=== PATIENT | male | born 1980 | race Caucasian/White ===

== ENCOUNTER 2021-04-19 12:38 | Emergency (ER) | payer SELFPAY ==
[2021-04-19 12:49] VITALS: BP 146/80; PULSE 87; RESP 16; TEMP 36.8; O2SAT 100
--- NOTE | 2021-04-19 13:00 | US_ITS ---
WS: [id number] SCROTAL ULTRASOUND EXAMINATION CLINICAL INFORMATION: injury/pain/swelling COMPARISON: None. FINDINGS: TESTES Normal in size and echotexture, without focal lesion. Color Doppler: Normal color Doppler flow pattern. Right testes size: 4.3 cm x 3.1 cm x 2.9 cm. Left testes size: 4.4 cm x 2.8 cm x 1.9 cm. EPIDIDYMIDES Enlarged edematous right epididymis with increased vascularity. Right epididymis size: 1.3 cm x 1.6 cm x 2.1 cm. Left epididymis size: 0.9 cm x 1.1 cm x 0.7 cm. HYDROCELE Large right hydrocele with a few septations VARICOCELE None. OTHER FINDINGS Small left epididymal cyst. Reactive lymph nodes in both inguinal regions. US/US scrotum [id number] IMPRESSION: 1. Findings compatible with right epididymitis. No definite evidence of orchit is. 2. Large right hydrocele with a few septations.
--- NOTE | 2021-04-19 13:35 | ED_ITS ---
Documented by User: DUSTY Milan 04/19/21 16:07 HPI - Male Genitourinary General: Chief complaint: General Medical Stated complaint: Swollen Testicle Time Seen by Provider: 04/19/21 12:59 Source: patient Mode of arrival: ambulatory Limitations: no limitations History of Present Illness: HPI Narrative: Patient is a 41-year-old male who presents to ED today with a complaint of severe right-sided scrotal/testicular pain and swelling. Patient states approximately a week ago he accidentally sat on his right testicle and immediately felt pain. He states since that time pain and swelling has continued to increase. He is not complaining of penile discharge, no genital lesions, no dysuria. Patient is urinating normally. MD Complaint: testicle pain and testicle swelling Onset (ago): day(s) Duration: constant Location: right testicle Severity: severe Exacerbating factors: other (ambulation) Associated symptoms: Reports no associated symptoms; Deny dysuria, hematuria or vomiting Review of Systems Const: Denies: fever(s), chills, body aches, fatigue or malaise GI: Denies: abdominal pain, vomiting or diarrhea : Reports: testicular pain and scrotal swelling; Denies: flank pain, difficulty urinating, dysuria, urinary frequency, urinary urgency, urinary hesitancy, hematuria, genital lesions or penile discharge Musc: Denies: back pain Skin/Breast: Denies: rash Physical Exam Const: COMMON NORMALS: no acute distress, patient oriented x3, no limitations and alert GENERAL APPEARANCE: cooperative GI: COMMON NORMALS: Normal to inspection, nondistended, normoactive bowel sounds present, Soft to palpation, non-tender, No hepatosplenomegaly present and no masses INSPECTION: Yes normal to inspection AUSCULTATION: Yes normoactive bowel sounds PALPATION: Yes Soft to palpation and Yes No hep atosplenomegaly present : PENIS: normal penis MEATUS: meatus normal SCROTUM: Yes testes descended bilaterally and Yes scrotal swelling Scrotal swelling laterality: right Scrotal swelling consistent with: hydrocele TESTES: Yes epididymal tenderness (R) Neuro: COMMON NORMALS: patient oriented x3 SENSORIUM/ORIENTATION: Yes alert Course Vital Signs: Vital signs: Vital Signs Temperature 98.3 F 04/19/21 12:49 Pulse Rate 87 04/19/21 12:49 Respiratory Rate 14 04/19/21 16:45 Blood Pressure 146/80 04/19/21 12:49 Pulse Oximetry 100 04/19/21 12:49 MDM - Male MDM Narrative: Medical decision making narrative: Patient story is that he said on his right testicle and since then has had pain and swelling. On exam patient does have a significant sized right hydrocele. There is tenderness to his epididymis. His ultrasound shows a large right hydrocele with a few septations and right-sided epididymitis. Patient's vital signs are stable. His urine with 2+ leuks, too numerous to count WBCs and bacteria. Patient denies new sexual partners, penile discharge, or dysuria. He will be treated with 500mg IM Rocephin and placed on Doxycycline and pain meds and we will get him follow up with Dr. Junior. Gonorrhea/chlamydia ran off of patient's urine and pending. Lab Data: Labs: Lab Results 04/19/21 14:47 Urine Color Yellow (Yellow) Urine Appearance Hazy A (CLEAR) Urine pH 7 (5-7) Ur Specific Gravit y 1.005 (1.005-1.030) Urine Protein Neg (Negative) Urine Glucose (UA) Norm (Normal) Urine Ketones 1+ H (Negative) Urine Blood 2+ H (Negative) Urine Nitrate Negative (Negative) Urine Bilirubin Neg (Negative) Urine Urobilinogen Norm mg/dL mg/dL (Negative) Ur Leukocyte Nayely ase 2+ H (Negative) Urine RBC 0-4 /hpf H /hpf (0-2) Urine WBC Too numerous to c nt /hpf H /hpf (0-5) Ur Squamous Epith Cells 0-4 /hpf H /hpf (0-5) Amorphous Sediment Not Reportable Urine Bacteria 1+ /hpf H /hpf (NONE) Urine Mucus Trace /hpf /hpf Discharge Plan Discharge Patient Disposition: Home Clinical Impression: Epididymitis, right, Right hydrocele Condition: Stable Prescriptions: New hydrocodone-acetaminophen 5-325 mg tablet 1 tab PO Q6H PRN (Reason: pain) Qty: 15 RF: 0 doxycycline monohydrate 100 mg capsule 100 mg PO Q12H 10 Days Qty: 20 RF: 0 Discharge Orders: Discharge ED (Routine); Ordered 04/19/21 Ordered By: Tammy Beltran Referrals: Lucas Junior MD [Physician] - Patient Instructions: Epididymitis (ED), Hydrocele (ED), Opioid Safety Activity Restrictions/Additional Instructions: As we discussed you need to fill your antibiotics and start them immediately and finish the entire course even if you begin feeling better. You need to wear supportive underwear and ice and elevate your scrotum to help with discomfort. Do not apply ice directly to your skin. Case management should contact you shortly to set you up with urology/Dr. Junior for further evaluation. You need to return to the emergency department for worsening or uncontrollable pain, worsening scrotal swelling, fevers, or any other concerns you may have. I hope you begin to feel better soon. Coding Level of Care Code ED Supervisor Parking Lot for Chg Fwd Exam Expanded Problem Focused Documented by User: Devin Smith DO 04/19/21 17:24 HPI - Male Genitourinary General: Chief complaint: General Medical Stated complaint: Swollen Testicle Time Seen by Provider: 04/19/21 12:59 Course Vital Signs: Vital signs: Vital Signs Temperature 98.3 F 04/19/21 12:49 Pulse Rate 87 04/19/21 12:49 Respiratory Rate 14 04/19/21 16:45 Blood Pressure 146/80 04/19/21 12:49 Pulse Oximetry 100 04/19/21 12:49 MDM - Male MDM Narrative: Medical decision making narrative: Chart reviewed with DUSTY Milan agree with assessment and plan. Lab Data: Labs: Lab Results 04/19/21 14:47 Urine Color Yellow (Yellow) Urine Appearance Hazy A (CLEAR) Urine pH 7 (5-7) Ur Specific Gravit y 1.005 (1.005-1.030) Urine Protein Neg (Negative) Urine Glucose (UA) Norm (Normal) Urine Ketones 1+ H (Negative) Urine Blood 2+ H (Negative) Urine Nitrate Negative (Negative) Urine Bilirubin Neg (Negative) Urine Urobilinogen Norm mg/dL mg/dL (Negative) Ur Leukocyte Nayely ase 2+ H (Negative) Urine RBC 0-4 /hpf H /hpf (0-2) Urine WBC Too numerous to c nt /hpf H /hpf (0-5) Ur Squamous Epith Cells 0-4 /hpf H /hpf (0-5) Amorphous Sediment Not Reportable Urine Bacteria 1+ /hpf H /hpf (NONE) Urine Mucus Trace /hpf /hpf Discharge Plan Discharge Patient Disposition: Home Clinical Impression: Epididymitis, right, Right hydrocele Condition: Stable Prescriptions: New hydrocodone-acetaminophen 5-325 mg tablet 1 tab PO Q6H PRN (Reason: pain) Qty: 15 RF: 0 doxycycline monohydrate 100 mg capsule 100 mg PO Q12H 10 Days Qty: 20 RF: 0 Discharge Orders: Discharge ED (Routine); Ordered 04/19/21 Ordered By: Tammy Beltran Referrals: Lucas Junior MD [Physician] - Patient Instructions: Epididymitis (ED), Hydrocele (ED), Opioid Safety Activity Restrictions/Additional Instructions: As we discussed you need to fill your antibiotics and start them immediately and finish the entire course even if you begin feeling better. You need to wear supportive underwear and ice and elevate your scrotum to help with discomfort. Do not apply ice directly to your skin. Case management should contact you shortly to set you up with urology/Dr. Junior for further evaluation. You need to return to the emergency department for worsening or uncontrollable pain, worsening scrotal swelling, fevers, or any other concerns you may have. I hope you begin to feel better soon. Coding Level of Care Code ED Supervisor Parking Lot for Chg Fwd Exam Expanded Problem Focused
[2021-04-19 14:01] VITALS: RESP 18
[2021-04-19] MEDS: morphine 4 mg/mL SDV 1 mL IM (14:01)
[2021-04-19] MEDS: ondansetron 2 mg/ML SDV 2 mL 4 MG IM (14:02)
[2021-04-19 14:57] LABS: Urine Appearance Hazy (CLEAR); Urine Color Yellow (Yellow)
[2021-04-19 14:58] LABS: Add Urine Microscopic? YES; Bilirubin Urine Neg (Negative); Blood Urine 2+ (Negative); Glucose Urine UA Norm (Normal); Ketones Urine 1+ (Negative); Leukocyte Esterase Urine 2+ (Negative); Nitrate Urine Negative (Negative); Protein Urine Neg (Negative); Specific Gravity, Urine 1.005 (1.005-1.030); Urobilinogen Urine Norm (Negative); pH Urine 7 (5-7)
[2021-04-19 15:35] LABS: Add Urine Culture? Yes; Bacteria Urine 1+ /hpf; Mucus Urine TRACE /hpf; RBC Urine 0-4 /hpf (0-2); Squamous Epithelial Cell Urine 0-4 /hpf (0-5); WBC Urine TOO NUMEROUS TO CNT /hpf (0-5)
[2021-04-19 16:45] VITALS: RESP 14
--- NOTE | 2021-04-20 11:47 | DCPLANNER ---
manager plan had message to schedule a follow up appointment for patient with Dr. Junior. manager plan called the office of Dr. Junior, spoke with Shavon, gave clinic patients information. manager plan was told that patients information would be printed and reviewed. Clinic will call patient with appointment information.
--- NOTE | 2021-05-03 15:27 | DCPLANNER ---
Patient had a follow up appointment scheduled for 04.27.[address] Junior - patient did not attend appointment.
== END 2021-04-19 16:44 | disposition home or self-care (01) ==
PROVIDERS: Emergency Provider Physician Assistant
DX: N45.1 Epididymitis (principal); N43.3 Hydrocele, unspecified
CPT/HCPCS: 76870; 81001; 87086; 87491; 87591; 96372; 99283; J0696; J2270; J2405